=== PATIENT | male | born 1940 | race Caucasian/White ===

== ENCOUNTER 2019-02-02 06:06 | Inpatient (IN) | payer OTHER, BC ==
[~2019-02-02 06:06] MED LIST: CEFAZOLIN 1 GM/50 ML (PMX) 50 ML IVPB; TRANEXAMIC ACID 1GM/100ML(PMX) 100 ML INTRA-OP X1 IVPB; TRANEXAMIC ACID 1GM/100ML(PMX) 100 ML PRE-OP X1 IVPB
[2019-02-02] MEDS ORDERED: HIP PAIN COCKTAIL VANCO INJ (07:00)
[2019-02-02] MEDS ORDERED: POLYMYXIN/BACITRACIN 1L IRRIG (07:14)
[2019-02-02] MEDS ORDERED: POLYMYXIN B 500000 UNIT INJ (07:14)
[2019-02-02] MEDS: ACETAMINOPHEN 1000MG/100ML IV 100 ML IVPB (07:19)
[2019-02-02] MEDS: ONDANSETRON 4 MG INJ IV (07:19)
[2019-02-02] MEDS: DEXAMETHASONE 4 MG/ML 1 ML INJ IV (07:20)
[2019-02-02] MEDS: LANSOPRAZOLE 30 MG CAP PO (07:20)
[2019-02-02] MEDS: oxyCODONE (CR) 10 MG TAB [oxyCONTIN] PO (07:20)
[2019-02-02] MEDS ORDERED: TRANEXAMIC ACID 1GM/100ML(PMX) 100 ML (07:25)
[2019-02-02] MEDS ORDERED: TRANEXAMIC ACID 1GM/100ML(PMX) 0 ML (07:25)
[2019-02-02] MEDS: ACETAMINOPHEN 500 MG TAB PO (07:36)
[2019-02-02] MEDS: LACTATED RINGER'S 1,000 ML IV (07:40)
[2019-02-02] MEDS ORDERED: VASOPRESSIN 20 UNITS INJ IV (07:44)
[2019-02-02] MEDS ORDERED: EPHEDrine 25 MG/5 ML SYG (07:44)
[2019-02-02] MEDS ORDERED: ETOMIDATE 20 MG INJ (07:44)
[2019-02-02] MEDS ORDERED: ROCURONIUM 50 MG INJ (07:44)
[2019-02-02] MEDS ORDERED: MIDAZOLAM 1 MG/ML 2 ML INJ (07:44)
[2019-02-02] MEDS ORDERED: PHENYLephrine (100 MCG/ML) 5ML SYG (07:44)
[2019-02-02] MEDS ORDERED: LIDOCAINE 1% (MDV) 20 ML INJ (07:44)
[2019-02-02] MEDS ORDERED: PROVENTIL HFA 6.7GM INHALER (09:08)
[2019-02-02] MEDS ORDERED: SUGAMMADEX SODIUM 200 MG/2 ML VIAL IV (09:08)
[2019-02-02] MEDS ORDERED: MAGNESIUM HYDROXIDE 30ML CUP PO (09:30)
[2019-02-02] MEDS ORDERED: NALOXONE (0.4 MG/ML) INJ IV (09:30)
[2019-02-02] MEDS ORDERED: NACL 0.9% 3 ML SYG IV ×2 (09:30→10:00)
[2019-02-02] MEDS ORDERED: DOCUSATE SODIUM 100 MG CAP PO (09:30)
[2019-02-02] MEDS ORDERED: KETOROLAC 15 MG INJ IV (09:30)
[2019-02-02] MEDS ORDERED: SENNA/DOCUSATE NA (8.6MG/50MG) TAB PO (09:30)
[2019-02-02] MEDS ORDERED: ACETAMINOPHEN 325 MG TAB PO (10:00)
[2019-02-02] MEDS ORDERED: DEXTROSE 50% 50 ML SYRINGE IV ×2 (11:30)
[2019-02-02] MEDS ORDERED: GLUCOSE GEL 15 GRAM TUBE BUCCAL (11:30)
[2019-02-02] MEDS ORDERED: GLUCAGON 1 MG INJ IM (11:30)
[2019-02-02] MEDS ORDERED: GLUCOSE GEL 15 GRAM TUBE PO ×2 (11:30)
[2019-02-02] MEDS: REGADENOSON 0.4 MG/5 ML SYG (12:40)
[2019-02-02] MEDS: INSULIN ASPART [NOVOLOG] 3 ML PEN SC ×2 (13:41→17:42)
[2019-02-02] MEDS: MAGNESIUM SULFATE 4 GM/100 ML 100 ML IVPB (14:27)
[2019-02-02] MEDS ORDERED: ATORVASTATIN 10 MG TAB PO (21:00)
[2019-02-02] MEDS ORDERED: HEPARIN 5,000 UNIT/1 ML VIAL SC (21:00)
[2019-02-02] MEDS ORDERED: GABAPENTIN 300 MG CAP PO (21:00)
[2019-02-03] MEDS ORDERED: PANTOPRAZOLE (EC) 40 MG TAB PO (06:00)
== END 2019-02-02 20:05 | disposition home or self-care (01) | DRG 554 ==
LOC: REC 06:06 → 6WM 13:20
PROC: C22G1ZZ Tomographic (Tomo) Nuclear Medicine Imaging of Myocardium using Technetium 99m (Tc-99m) (ICD-10-PCS; principal; 2019-02-02 07:49)
DX: M16.11 Unilateral primary osteoarthritis, right hip (principal); I95.2 Hypotension due to drugs; T41.45XA Adverse effect of unspecified anesthetic, initial encounter; Y92.234 Operating room of hospital as the place of occurrence of the external cause; I49.3 Ventricular premature depolarization; E11.22 Type 2 diabetes mellitus with diabetic chronic kidney disease; I12.9 Hypertensive chronic kidney disease with stage 1 through stage 4 chronic kidney disease, or unspecified chronic kidney disease; N18.9 Chronic kidney disease, unspecified; E66.9 Obesity, unspecified; Z68.33 Body mass index [BMI] 33.0-33.9, adult; E78.5 Hyperlipidemia, unspecified; Z87.891 Personal history of nicotine dependence; Z53.09 Procedure and treatment not carried out because of other contraindication
CPT/HCPCS: 71045; 72170; 73530; 78452; 80048; 80061; 82962; 83036; 83735; 83880; 84100; 84484; 85025; 93005; 93017; 93306; 99217